=== PATIENT | male | born 1970 | race Caucasian/White ===

== ENCOUNTER 2024-01-15 10:22 | Outpatient (CLI) | payer OTHER, SELFPAY ==
--- NOTE | ~2024-01-15 | XR_ITS ---
Left Hand Technique: PA and lateral views were obtained. Clinical History: Pain Findings: No acute fracture or dislocation is seen. Osseous alignment is anatomic. There is moderate degenerative change of the first CMC joint. Soft tissues are unremarkable. 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 Reviewed, dictated and finalized at location . 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
--- NOTE | ~2024-01-15 | XR_ITS ---
Right Hand Technique: PA and lateral views were obtained. Clinical History: Pain Findings: No acute fracture or dislocation is seen. Osseous alignment is anatomic. There is mild dege nerative change of the first CMC joint. Soft tissues are unremarkable. Impression: Mild degenerative change of the first CMC joint. Reviewed, dictated and finalized at location . Impression: Mild degenerative change of the first CMC joint.
== END 2024-01-15 10:23 ==
PROVIDERS: PCP Nurse Practitioner Family; Visit Provider Nurse Practitioner Family
DX: M19.041 Primary osteoarthritis, right hand (principal); M19.042 Primary osteoarthritis, left hand
CPT/HCPCS: 73120

== ENCOUNTER 2024-02-23 07:00 | Outpatient (NON) | payer OTHER, SELFPAY | END 2024-02-23 07:01 | disposition home or self-care (01) | PROVIDERS: PCP Nurse Practitioner Family; Visit Provider Internal Medicine Gastroenterology | DX: Z12.11 Encounter for screening for malignant neoplasm of colon (principal); D12.5 Benign neoplasm of sigmoid colon; K63.5 Polyp of colon | CPT/HCPCS: 88305 ==

== ENCOUNTER 2024-02-23 10:15 | Day surgery (SDC) | payer OTHER, SELFPAY ==
[2024-02-16 08:15] VITALS: BMI 28.1
[2024-02-16 11:08] VITALS: BMI 28.3
--- NOTE | 2024-02-22 22:09 | PM.HPGS ---
History of Present Illness History of Present Illness Consent: Risks, benefits, and alternatives have been discussed and questions answered. Patient agrees to proceed with procedure. Chief complaint: Screening for neoplasm of colon Narrative: Aleksey Ceron is a 54 year old male who is referred for colon cancer screening. Review of Systems Review of Systems: All systems reviewed & are unremarkable except as noted in HPI and below PMFSH Family History Family History Grandparent Carcinoma of colon Father Cancer Social History Social History Smoking status: Former smoker Tobacco type: smokeless tobacco Smokeless tobacco user: chewing tobacco Smoking end date: 12/24/11 Alcohol intake: current Substance use: never Substance use type: does not use Living arrangements: with family Spiritual care concerns: No Meds Home Medications and Allergies Home Medications Medication Instructions Recorded Confirmed Type meloxicam 7.5 mg tablet 7.5 mg PO PRN PRN Pain 02/16/24 02/23/24 History Allergies Allergy/AdvReac Type Severity Reaction Status Date / Time No Known Drug Allergies Allergy Unknown Verified 02/23/24 12:02 Exam Resp: Auscultation: clear to auscultation bilaterally Cardio: Rate: regular rate Rhythm: regular rhythm GI: GI Palp: Yes Soft to palpation and No Tenderness to palpation present (GI) Assessment and Plan Assessment and plan (1) Colon cancer screening: Code(s): Z12.11 - Encounter for screening for malignant neoplasm of colon Status: Acute Assessment and Plan: Colonoscopy with possible biopsy or polypectomy or cautery or injection of substances.
[2024-02-23 12:04] VITALS: BP 126/94; PULSE 62; RESP 15; TEMP 36.4; O2SAT 99
[2024-02-23] MEDS: LACTATED RINGERS 1,000 ML 150 ML IV CONT (12:06)
--- NOTE | 2024-02-23 12:41 | P.PNAN_ITS ---
Anes - Initial Pre Proc Eval Procedure: Operation Date: 02/23/24 13:00 Proposed Procedures p Screening Colonoscopy - Rashawn Dietirch MD Date/Time: 02/23/24 12:41 Surgeon: Rashawn Dietrich MD Pre Op Diagnosis: Screening for neoplasm of colon Patient Data Age: 54 Gender: M Height: 1.88 m Weight: 97.8 kg Last Vital Signs Temp 36.4 C 02/23/24 12:04 Pulse 62 02/23/24 12:04 Resp 15 02/23/24 12:04 BP 126/94 H 02/23/24 12:04 Pulse Ox 99 02/23/24 12:04 O2 Del Method Room Air 02/23/24 12:04 Allergies Allergy/AdvReac Type Severity Reaction Status Date / Time No Known Drug Allergies Allergy Unknown Verified 02/23/24 12:02 Home Medications Medication Instructions Recorded Confirmed Type meloxicam 7.5 mg tablet 7.5 mg PO PRN PRN Pain 02/16/24 02/23/24 History Patient hx anesthesia problems: none Family hx anesthesia problems: none Results Review: All pre-operative results and documents have been reviewed as part of the pre- operative evaluation. [facility] Family History Family History Grandparent Carcinoma of colon Father Cancer Social History Social History Smoking status: Former smoker Tobacco type: smokeless tobacco Smokeless tobacco user: chewing tobacco Smoking end date: 12/24/11 Alcohol intake: current Substance use: never Substance use type: does not use Living arrangements: with family Spiritual care concerns: No Anes - Eval Final PreProcedure Day of Procedure 02/23/24 12:41 Patient weight: overweight Heart: regular rate and rhythm Lungs: clear to auscultation Airway: Mallampati scale class II Neurological: alert and oriented Last oral intake: >/= 8 hours ASA classification: II Emergent: no Anesthetic plan: proceed Anesthesia type and monitoring: general GIVS and standard monitoring Results Review: All pre-operative results and documents have been reviewed as part of the pre- operative evaluation. Informed Consent: The patient's anesthetic plan and its attendant risks and benefits were discussed with the patient/family/POA. Questions were solicited and answers provided to the satisfaction of the patient/family/POA.
[2024-02-23 13:27] VITALS: BP 103/62; PULSE 67; RESP 14; O2SAT 97
[2024-02-23 13:37] VITALS: BP 109/70; PULSE 55; RESP 16; O2SAT 98
[2024-02-23 13:47] VITALS: BP 117/86; PULSE 54; RESP 18; O2SAT 98
--- NOTE | 2024-02-23 13:48 | WPDANESPN ---
Anes - Prog Note Post-Op Date/Time: 02/23/24 13:48 Cardiovascular status: normal Respiratory status: normal Airway patency: baseline Mental status: baseline Post-Op hydration status: normal Vital Signs: Last Vital Signs Temp 36.4 C 02/23/24 12:04 Pulse 67 02/23/24 13:27 Resp 14 02/23/24 13:27 BP 103/62 02/23/24 13:27 Pulse Ox 97 02/23/24 13:27 O2 Del Method Room Air 02/23/24 13:27 Pain Score (VAS): 0 I/O: Intake & Output 02/22/24 02/23/24 02/23/24 23:59 07:59 15:59 Intake Total 200 Balance 200 Patient Feedback: Patient satisfied with anesthetic care.
== END 2024-02-23 14:00 | disposition home or self-care (01) ==
PROVIDERS: PCP Nurse Practitioner Family; Visit Provider Internal Medicine Gastroenterology
PROC: 0DJD8ZZ Inspection of Lower Intestinal Tract, Via Natural or Artificial Opening Endoscopic (ICD-10-PCS; CPT 45378; principal; 2024-02-23 13:00)
DX: Z12.11 Encounter for screening for malignant neoplasm of colon (principal); D12.5 Benign neoplasm of sigmoid colon; K64.8 Other hemorrhoids
CPT/HCPCS: 45385